=== PATIENT | female | born 1985 | race African-American/Black ===

== ENCOUNTER 2016-11-09 12:25 | Emergency (ER) | payer BC ==
[~2016-11-09] VITALS: Ht 172.7 cm; Wt 81.6 kg
[2016-11-09 12:31] VITALS: BP 141/81
[2016-11-09] MEDS ORDERED: ACETAMINOPHEN ES 500 MG TABLET ONE (13:10)
[2016-11-09] MEDS ORDERED: ACETAMINOPHEN 325 MG TABLET PO ONE (13:30)
== END 2016-11-09 13:35 | disposition home or self-care (01) ==
LOC: ER 12:27
DX: S06.0X9A Concussion with loss of consciousness of unspecified duration, initial encounter (principal); S00.03XA Contusion of scalp, initial encounter; S80.02XA Contusion of left knee, initial encounter; W01.198A Fall on same level from slipping, tripping and stumbling with subsequent striking against other object, initial encounter; Y93.89 Activity, other specified; Y92.89 Other specified places as the place of occurrence of the external cause; Y99.8 Other external cause status
CPT/HCPCS: 99282; A4606; Z7502; Z7610